=== PATIENT | female | born 1970 | race African-American/Black ===

== ENCOUNTER 2018-11-30 09:45 | Day surgery (SDC) | payer SELFPAY ==
[2018-11-29 11:59] VITALS: BMI 38.5
[2018-11-30] MEDS ORDERED: Fentanyl 100 MCG/2 ML VIAL ONE ×2 (10:21→11:40)
[2018-11-30] MEDS ORDERED: Lidocaine 2% PF 5 ML VIAL ONE (10:27)
[2018-11-30] MEDS ORDERED: Bupivacaine/Epinephrine 0.25% 30 ML VIAL ONE (10:27)
[2018-11-30] MEDS ORDERED: Ondansetron PF 4 MG/2 ML Vial ONE (10:32)
[2018-11-30] MEDS ORDERED: Dexamethasone 20 MG/5 ML VIAL ONE (10:32)
[2018-11-30] MEDS ORDERED: Lidocaine 1% PF 5 ML VIAL ONE (10:32)
[2018-11-30] MEDS ORDERED: PHENYLEPHRINE-NS 100 MCG/ML 10 ML SYRINGE ONE (10:32)
[2018-11-30] MEDS ORDERED: PROPOFOL 200 MG/20 ML VIAL ONE (10:32)
[2018-11-30] MEDS ORDERED: Ketorolac Tromethamine 30 MG/ML VIAL ONE (10:44)
[2018-11-30] MEDS ORDERED: Midazolam HCl 2 mg/2 ml Vial ONE (11:34)
[2018-11-30] MEDS ORDERED: PROPOFOL 20 ML ONE (12:09)
--- NOTE | 2018-11-30 13:07 | PDOC.OP ---
Operative Note - Operative Note Operative Note: PROCEDURE: Placement of right internal jugular Mediport with ultrasound and fluoroscopic guidance. SURGEON: Mitchell Luna M.D. DATE OF PROCEDURE: 11/30/2018 PREOPERATIVE DIAGNOSIS: Inflammatory breast cancer POSTOPERATIVE DIAGNOSIS: Inflammatory breast cancer HISTORY: Patient with recently diagnosed inflammatory breast cancer who requires Mediport placement for chemotherapy access. Staging is still underway. PROCEDURE: After informed consent was obtained and appropriate preoperative antibiotics were administered, the patient was taken to the Operating Room, placed in the supine position and anesthesia was administered. The neck and chest were prepped and draped in a standard sterile fashion and the patient placed in Trendelenburg position. A sterile ultrasound probe was used to identify the patent compressible right IJ vein which was accessed under direct ultrasound guidance. A wire was threaded through the needle and confirmed by ultrasound to be within the patent compressible vessel with the tip in the vena cava by fluoroscopy. Local anesthesia was infused to the skin and subcutaneous tissues of the right neck and chest. An infraclavicular incision was made and a catheter tunneled from the infraclavicular to the right IJ access site. A dilator and sheath were placed over the wire and the dilator and wire removed leaving the sheath in place. The catheter tubing was tunneled through the sheath which was then split and removed leaving the catheter in place. This was confirmed by fluoroscopy to be in good position in the superior vena cava with no kinking of the course of the catheter. The catheter was cut to length at the subclavian incision and secured to the port. A subcutaneous pocket was placed and the port was secured to the pectoralis fascia within the pocket. The port easily aspirated and flushed without difficulty. The course of the tubing was confirmed to be smooth with the tip of the Mediport in the superior vena cava. The skin incision at the neck was closed with 4-0 Monocryl suture and Dermabond dressings were placed. The skin at the subclavian incision was closed with 3-0 Monocryl subcutaneous and with 4-0 Monocryl subcuticular suture and Dermabond was placed there as well. The patient was taken to Recovery in good condition. Estimated blood loss was minimal. There were no complications. There were no specimens.
--- NOTE | 2018-11-30 15:29 | RAD ---
CHEST 1 VIEW: INDICATION: Status post MediPort placement. COMPARISON: Prior chest radiograph dated 06/04/2005. FINDINGS: Heart size is normal. Lungs are clear. There is a right IJ chest wall MediPort in place. No pneumo thorax is evident. IMPRESSION: No pneumothorax. POS: [facility]
== END 2018-11-30 15:30 | disposition home or self-care (01) ==
LOC: SDC 09:45
PROVIDERS: ATTEND Surgery
PROC: 05HM33Z Insertion of Infusion Device into Right Internal Jugular Vein, Percutaneous Approach (ICD-10-PCS; principal; 2018-11-30)
DX: C50.912 Malignant neoplasm of unspecified site of left female breast (principal); J45.909 Unspecified asthma, uncomplicated; Z17.1 Estrogen receptor negative status [ER-]; Z79.899 Other long term (current) drug therapy
CPT/HCPCS: 71045; C1788; J0131; J1100; J1642; J1885; J2001; J2250; J2405; J2704; J3010

== ENCOUNTER 2018-12-04 12:11 | Outpatient (CLI) | payer MEDICAID, SELFPAY ==
--- NOTE | 2018-12-04 15:46 | CT ---
CT CHEST AND ABDOMEN AND PELVIS WITH CONTRAST: Multiple axial tomograms were obtained throughout the chest, abdomen, and pelvis with IV enhancement. INDICATION: Breast cancer. Staging. The patient recently underwent bilateral breast biopsy. The left breast biopsy showed invasive ducta l carcinoma. COMPARISON: Comparison is made to a noncontrast abdomen CT from 03/30/2008. FINDINGS: CT CHEST: The lungs are well aerated. In the left lung there is a 7-8 mm nodule in the left upper lobe. There is an 8 mm nodule in the lef t upper lobe lingula segment. There is a 1.5 cm nodule along the fissure probably located in the sup erior segment of the left lower lobe. In the right lung, there is a tiny 3-4 mm nodule adjacent to the fissure in the right middle lobe. T here are 2 small 5 mm nodules in the anterior right lower lobe, 1 adjacent to the mediastinum and the other adjacent to the pleural surface of the hemidiaphragm, both seen on image 37. Another small 3 x 5 mm nodule right lower lobe image 39 of axial plane. A tiny 2-3 mm nodule right l ower lobe also image 39. There is mild mediastinal adenopathy with enlarged paratracheal lymph nodes. A left hilar lymph node measures 1.5 cm. Large left breast mass measuring 5-6 cm. There is haziness in the left breast adipose tissue and the re is left breast skin thickening, worrisome for inflammatory carcinoma. Prominent left axillary adenopathy. A large conglomerate of lymph nodes in the left axilla measures up to 4.2 cm AP dimension. Numerous other enlarged left axillary lymph nodes. There are retropector al lymph nodes on the left. There is a central necrotic retropectoral lymph node on the left measuri ng 1.8 cm. There is an enlarged right axillary lymph node measuring 2.0 cm. There is heterogeneity in the right breast tissue. There is asymmetric skin thickening in the medial right breast which should be furth er investigated with punch biopsy. Osseous structures unremarkable. IMPRESSION: 1. Pulmonary nodules seen in both lungs as described above. 2. Mediastinal and left hilar adenopathy as described. 3. Enlarged edematous left breast with diffuse left breast skin thickening and a mass-like density i n the left breast as described above. There is prominent left axillary adenopathy and left retropect oral adenopathy as descried. Neoplasm should be excluded. 4. Asymmetric skin thickening in the medial right breast with heterogeneity of the right breast pare nchyma. At least 1 enlarged right axillary lymph node measures 2.0 cm. Consider skin biopsy medial right breast and right axillary node biopsy. CT ABDOMEN AND PELVIS: Multiple axial tomograms were obtained through the abdomen and pelvis with IV enhancement and with or al contrast. INDICATION: Breast cancer staging. The liver, spleen, and pancreas are unremarkable. Adrenal glands normal. Kidneys unremarkable. The small bowel loops appear normal. Colon unremarkable. Aorta normal caliber. Images through the pelvis reveal an enlarged heterogeneous uterus. Findings suggest a fibroid uterus . A large prominent area in the fundus of the uterus may represent a large fibroid measuring 5-6 cm. There are 2 adjacent cysts in the left adnexa which appear to be ovarian. These are best seen on cor onal images and each of these cysts measure approximately 2.0 cm. There is also a complex possibly septated cystic mass from the right adnexa, presumably ovarian with the cystic mass measuring up to 4.8 cm craniocaudal in the coronal plane. This may also represent 2 adjacent cystic structures from the right ovary. The appendix is identified and appears normal. The osseous structures are unremarkable. Sclerosis along both SI joints is mildly prominent suggesti ng sacroiliitis. IMPRESSION: 1. Bilateral ovarian cystic masses as described above. Followup recommended to assess resolution. 2. Enlarged heterogeneous uterus suggesting a large fibroid uterus. POS: [facility]
[2018-12-04] MEDS ORDERED: Iopamidol 370 76% 100 ML VIAL ONE (16:30)
== END 2018-12-04 12:12 | disposition home or self-care (01) ==
LOC: CT 12:11
PROVIDERS: ATTEND Internal Medicine Hematology & Oncology
DX: C50.112 Malignant neoplasm of central portion of left female breast (principal); R91.8 Other nonspecific abnormal finding of lung field; R59.0 Localized enlarged lymph nodes; N83.201 Unspecified ovarian cyst, right side; N83.202 Unspecified ovarian cyst, left side; N64.59 Other signs and symptoms in breast; I07.1 Rheumatic tricuspid insufficiency; N85.2 Hypertrophy of uterus; Z79.899 Other long term (current) drug therapy
CPT/HCPCS: 71260; 74177; 93306; Q9967

== ENCOUNTER 2018-12-15 07:24 | Outpatient (CLI) | payer MEDICAID ==
--- NOTE | 2018-12-15 10:46 | PET ---
PET CT: HISTORY: 48-year-old female with left breast cancer. Patient appeared to have metastatic disease to the medias tinum and axillary regions on CT. COMPARISON: CT chest/abdomen/pelvis dated 12/04/18. TECHNIQUE: A PET CT was performed from the skull base through the mid thigh after administration of 13.9 mCi F18 -FDG. FINDINGS: There is a large mass occupying the majority of the left breast. This is hypermetabolic with a max RICHARDSON V value of 9.4. This extends throughout the majority of the breast and to the skin surface where ther e is hypermetabolic activity at the skin surface. There are enlarged left axillary lymph nodes which are hypermetabolic with a max SUV value of 10.1. There is a single and large right axillary lymph node with a max SUV value of 8.9. There is a hypermetabolic left hilar lymph node with a max SUV value of 5.6. There are small superior mediastinal hypermetabolic lymph nodes with max SUV value of 5.2. There are small scattered nodules in the lungs which do not demonstrate hypermetabolic activity. The majority of these nodules are too small and likely below PET resolution. Metastasis cannot be entirel y excluded. No suspicious or hypermetabolic activity is seen in the neck. No suspicious or hypermetabolic activity is seen within the abdomen. In particular, no hypermetabolic activity is seen in the pelvis in the region of the previously described ovarian abnormalities which likely represent normal ovaries in this patient. There are scattered areas of hypermetabolic activity in the skeleton. None of these regions have CT c orrelates. In the sternum, there is a focal hypermetabolic activity with a max SUV value of 4.8. In t he T6 vertebral body, there is a focal hypermetabolic region with a max SUV value of 4.3. In the L5 v ertebral body, there is a focal hypermetabolic area with a max SUV value of 9.4. In the right iliac b one, there is a focal hypermetabolic region with a max SUV value of 3.9. In the left proximal humerus , there is a focal area of hypermetabolic activity with a max SUV value of 6.8. IMPRESSION: 1. Large left breast mass is consistent with patient's diagnosis of left breast cancer. There appear s to be metastatic disease to the bilateral axillary regions, as well as to the mediastinum and left hilar region in the chest. 2. There is diffuse osseous metastatic disease without CT correlate. POS: [facility]
== END 2018-12-15 07:25 | disposition home or self-care (01) ==
LOC: PET 07:24
PROVIDERS: ATTEND Internal Medicine Hematology & Oncology
DX: C50.912 Malignant neoplasm of unspecified site of left female breast (principal); C79.51 Secondary malignant neoplasm of bone
CPT/HCPCS: 78815; A9552

== ENCOUNTER 2019-01-02 08:49 | Day surgery (SDC) | payer MEDICAID ==
[~2019-01-02 08:49] MED LIST: ATEZOLIZUMAB 840 MG in Sodium Chloride 0.9% 250 ML 250 ML IVPB SCH; Ondansetron 2MG/ML MDV 10 MG in Sodium Chloride 0.9% 50 ML IVP SCH; PACLitaxel Protein-Bound 200 MG in Admixture Fee 1 EACH IVPB SCH
[2019-01-02] MEDS ORDERED: Sodium Chloride 0.9% 20 ML ONE (10:02)
[2019-01-02 11:36] VITALS: BP 133/83; TEMP 98
== END 2019-01-02 13:08 | disposition home or self-care (01) ==
LOC: ONC/OP 08:49
PROVIDERS: ATTEND Internal Medicine Hematology & Oncology
DX: Z51.12 Encounter for antineoplastic immunotherapy (principal); C50.112 Malignant neoplasm of central portion of left female breast; Z17.1 Estrogen receptor negative status [ER-]
CPT/HCPCS: 96375; 96413; 96417; J1642; J2405; J7050; J9022; J9264

== ENCOUNTER 2019-01-09 09:14 | Day surgery (SDC) | payer MEDICAID ==
[~2019-01-09 09:14] MED LIST changes: -ATEZOLIZUMAB 840 MG in Sodium Chloride 0.9% 250 ML 250 ML IVPB SCH; -Ondansetron 2MG/ML MDV 10 MG in Sodium Chloride 0.9% 50 ML IVP SCH; +Ondansetron 2MG/ML MDV 10 MG in Sodium Chloride 0.9% 50 ML IVPB SCH
[2019-01-09] MEDS ORDERED: Sodium Chloride 0.9% 20 ML ONE (09:31)
[2019-01-09 09:37] VITALS: BP 122/67; TEMP 98.2
== END 2019-01-09 11:00 | disposition home or self-care (01) ==
LOC: ONC/OP 09:14
PROVIDERS: ATTEND Internal Medicine Hematology & Oncology
DX: Z51.11 Encounter for antineoplastic chemotherapy (principal); C50.112 Malignant neoplasm of central portion of left female breast; Z17.1 Estrogen receptor negative status [ER-]
CPT/HCPCS: 36415; 80053; 82248; 83615; 84100; 84443; 84550; 96375; 96413; J1642; J2405; J7050; J9264

== ENCOUNTER 2019-01-16 09:02 | Day surgery (SDC) | payer MEDICAID ==
[~2019-01-16 09:02] MED LIST changes: +ATEZOLIZUMAB 840 MG in Sodium Chloride 0.9% 250 ML 250 ML IVPB SCH
[2019-01-16] MEDS ORDERED: Sodium Chloride 0.9% 20 ML ONE (09:23)
[2019-01-16 12:23] VITALS: BP 122/58; TEMP 97.8
== END 2019-01-16 12:33 | disposition home or self-care (01) ==
LOC: ONC/OP 09:02
PROVIDERS: ATTEND Internal Medicine Hematology & Oncology
DX: Z51.11 Encounter for antineoplastic chemotherapy (principal); C50.112 Malignant neoplasm of central portion of left female breast
CPT/HCPCS: 96375; 96413; 96417; J1642; J2405; J7050; J9022; J9264

== ENCOUNTER 2019-01-30 10:07 | Day surgery (SDC) | payer OTHER ==
[2019-01-30] MEDS ORDERED: Sodium Chloride 0.9% 20 ML ONE (10:11)
== END 2019-01-30 13:02 | disposition home or self-care (01) ==
LOC: ONC/OP 10:07
PROVIDERS: ATTEND Internal Medicine Hematology & Oncology
DX: Z51.12 Encounter for antineoplastic immunotherapy (principal); C50.112 Malignant neoplasm of central portion of left female breast; Z17.1 Estrogen receptor negative status [ER-]
CPT/HCPCS: 96375; 96413; 96417; J1642; J2405; J7050; J9022; J9264

== ENCOUNTER 2019-02-06 08:49 | Day surgery (SDC) | payer OTHER ==
[~2019-02-06 08:49] MED LIST changes: -ATEZOLIZUMAB 840 MG in Sodium Chloride 0.9% 250 ML 250 ML IVPB SCH
[2019-02-06] MEDS ORDERED: Sodium Chloride 0.9% 20 ML ONE (09:13)
== END 2019-02-06 12:30 | disposition home or self-care (01) ==
LOC: ONC/OP 08:49
PROVIDERS: ATTEND Internal Medicine Hematology & Oncology
DX: Z51.12 Encounter for antineoplastic immunotherapy (principal); C50.112 Malignant neoplasm of central portion of left female breast
CPT/HCPCS: 96375; 96413; J1642; J2405; J7050; J9264

== ENCOUNTER 2019-02-27 08:46 | Day surgery (SDC) | payer OTHER ==
[~2019-02-27 08:46] MED LIST changes: +ATEZOLIZUMAB 840 MG in Sodium Chloride 0.9% 250 ML 250 ML IVPB SCH
[2019-02-27] MEDS ORDERED: Sodium Chloride 0.9% 20 ML ONE (08:56)
[2019-02-27 09:34] VITALS: BP 138/73; TEMP 97.7
== END 2019-02-27 11:56 | disposition home or self-care (01) ==
LOC: ONC/OP 08:46
PROVIDERS: ATTEND Internal Medicine Hematology & Oncology
DX: Z51.11 Encounter for antineoplastic chemotherapy (principal); C50.112 Malignant neoplasm of central portion of left female breast
CPT/HCPCS: 96375; 96413; 96417; J1642; J2405; J7050; J9022; J9264

== ENCOUNTER 2019-03-06 09:32 | Day surgery (SDC) | payer OTHER ==
[~2019-03-06 09:32] MED LIST changes: -ATEZOLIZUMAB 840 MG in Sodium Chloride 0.9% 250 ML 250 ML IVPB SCH
[2019-03-06 10:30] VITALS: BP 121/74; TEMP 97.8
== END 2019-03-06 12:13 | disposition home or self-care (01) ==
LOC: ONC/OP 09:32
PROVIDERS: ATTEND Internal Medicine Hematology & Oncology
DX: Z51.12 Encounter for antineoplastic immunotherapy (principal); C50.112 Malignant neoplasm of central portion of left female breast; Z17.1 Estrogen receptor negative status [ER-]
CPT/HCPCS: 36415; 80053; 82248; 83615; 84100; 84550; 96375; 96413; J2405; J7050; J9264

== ENCOUNTER 2019-03-13 09:04 | Day surgery (SDC) | payer OTHER ==
[~2019-03-13 09:04] MED LIST changes: +ATEZOLIZUMAB 840 MG in Sodium Chloride 0.9% 250 ML 250 ML IVPB SCH
[2019-03-13 09:28] VITALS: BP 117/83; TEMP 98.5
[2019-03-13] MEDS ORDERED: Sodium Chloride 0.9% 20 ML ONE (11:16)
== END 2019-03-13 11:21 | disposition home or self-care (01) ==
LOC: ONC/OP 09:04
PROVIDERS: ATTEND Internal Medicine Hematology & Oncology
DX: Z51.12 Encounter for antineoplastic immunotherapy (principal); C50.112 Malignant neoplasm of central portion of left female breast
CPT/HCPCS: 96375; 96413; 96417; J1642; J2405; J7050; J9022; J9264

== ENCOUNTER 2019-03-27 08:47 | Day surgery (SDC) | payer OTHER ==
[2019-03-27] MEDS ORDERED: Sodium Chloride 0.9% 20 ML ONE (08:49)
[2019-03-27 09:16] VITALS: BP 153/82; TEMP 97.8
== END 2019-03-27 13:32 | disposition home or self-care (01) ==
LOC: ONC/OP 08:47
PROVIDERS: ATTEND Internal Medicine Hematology & Oncology
DX: Z51.12 Encounter for antineoplastic immunotherapy (principal); C50.112 Malignant neoplasm of central portion of left female breast
CPT/HCPCS: 96375; 96413; 96417; J1642; J2405; J7050; J9022; J9264

== ENCOUNTER 2019-04-03 09:20 | Day surgery (SDC) | payer OTHER ==
[~2019-04-03 09:20] MED LIST changes: -ATEZOLIZUMAB 840 MG in Sodium Chloride 0.9% 250 ML 250 ML IVPB SCH
[2019-04-03] MEDS ORDERED: Sodium Chloride 0.9% 20 ML ONE (09:50)
[2019-04-03 10:57] VITALS: BP 109/77; TEMP 98.5
== END 2019-04-03 12:18 | disposition home or self-care (01) ==
LOC: ONC/OP 09:20
PROVIDERS: ATTEND Internal Medicine Hematology & Oncology
DX: Z51.12 Encounter for antineoplastic immunotherapy (principal); C50.112 Malignant neoplasm of central portion of left female breast
CPT/HCPCS: 96375; 96413; J1642; J2405; J9264

== ENCOUNTER 2019-04-10 09:25 | Day surgery (SDC) | payer OTHER ==
[~2019-04-10 09:25] MED LIST changes: +ATEZOLIZUMAB 840 MG in Sodium Chloride 0.9% 250 ML 250 ML IV SCH; +ATEZOLIZUMAB 840 MG in Sodium Chloride 0.9% 250 ML 250 ML IVPB SCH
[2019-04-10] MEDS ORDERED: Sodium Chloride 0.9% 20 ML ONE (09:31)
[2019-04-10 11:10] VITALS: BP 130/74; TEMP 98.1
== END 2019-04-10 14:54 | disposition home or self-care (01) ==
LOC: ONC/OP 09:25
PROVIDERS: ATTEND Internal Medicine Hematology & Oncology
DX: Z51.12 Encounter for antineoplastic immunotherapy (principal); C50.112 Malignant neoplasm of central portion of left female breast
CPT/HCPCS: 36415; 80053; 82248; 83615; 84100; 84550; 96375; 96413; 96417; G9022; J1642; J2405; J7050; J9264

== ENCOUNTER 2019-04-24 09:18 | Day surgery (SDC) | payer OTHER ==
[2019-04-24] MEDS ORDERED: Sodium Chloride 0.9% 20 ML ONE (09:22)
[2019-04-24 09:33] VITALS: BP 121/77; TEMP 97.6
[2019-04-24] MEDS ORDERED: Ondansetron HCl/PF 10 MG in Sodium Chloride 0.9% 50 ML IVPB SCH (09:45)
[2019-04-24] MEDS ORDERED: PACLITAXEL PROTEIN BOUND IVPB SCH (09:45)
[2019-04-24] MEDS ORDERED: ADMIXTURE FEE CHEMO IVPB SCH (09:45)
[2019-04-24] MEDS ORDERED: ATEZOLIZUMAB 840 MG in Sodium Chloride 0.9% 250 ML 250 ML IV SCH (09:45)
== END 2019-04-24 13:09 | disposition home or self-care (01) ==
LOC: ONC/OP 09:18
PROVIDERS: ATTEND Internal Medicine Hematology & Oncology
DX: Z51.12 Encounter for antineoplastic immunotherapy (principal); C50.112 Malignant neoplasm of central portion of left female breast
CPT/HCPCS: 96375; 96413; 96417; G9022; J1642; J2405; J7050; J9264

== ENCOUNTER 2019-04-27 08:26 | Outpatient (CLI) | payer OTHER ==
--- NOTE | 2019-04-27 10:38 | PET ---
PET W CT Skull to Mid Thigh History: Malignant neoplasm of central portion of left lung. Secondary malignant neoplasm of bone. Ev aluate for treatment response. Comparison: PET/CT December 15, 2018 Findings: PET CT from skull to mid thigh was performed after the intravenous administration 10.6 mCi F-18 FDG. No abnormal intracranial uptake. The left breast uptake has markedly decreased with only a small mass having significant FDG avidity with SUV max of 5.1. Previous SUV max of the left breast was measured at 9.4. Is seen in the left intramammary lymph node has SUV max 2.87, previously indistingui shable from the primary malignancy. Left axillary adenopathy has decreased in size and has background FDG uptake. No internal mammary cris nopathy. Previously abnormal right axillary lymph node has background FDG avidity. No mediastinal adenopathy. No abnormal uptake in the abdomen or pelvis. Previously described prevascular lymph node has background FDG avidity. Previously described left hil ar lymph node has background FDG avidity. Normal background uptake of radiotracer within the sternum and manubrium. The L5 FDG avidity is marke dly decreased with SUV max of 4.45, previously measured at 9.4. The previously described left humeral metastatic focus has background FDG avidity. The thoracic spine metastatic focus has markedly decreased FDG activity of 3.6, previously 5.2. No new suspicious area of FDG uptake. Right iliac bone metastatic focus has background FDG avidity. On the CT images for attenuation correction the lungs are clear. No pneumothorax. No pericardial effu che. Extensive left breast skin thickening. No acute inflammatory process within the abdomen or pelvis. No hydronephrosis. No pathologic fracture . 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 Impression: Marked interval improvement of disease. The left breast primary malignancy has markedly s hrunken only a single focal area of increased FDG activity with associated small intramammary lymph node. The hilar and axillary adenopathy has background uptake. Marked interval improvement of osseous metastatic disease. No new focal area of metastasis.
== END 2019-04-27 08:27 | disposition home or self-care (01) ==
LOC: PET 08:26
PROVIDERS: ATTEND Internal Medicine Hematology & Oncology
DX: C50.112 Malignant neoplasm of central portion of left female breast (principal); C78.00 Secondary malignant neoplasm of unspecified lung; C79.51 Secondary malignant neoplasm of bone; R59.0 Localized enlarged lymph nodes
CPT/HCPCS: 78815; A9552

== ENCOUNTER 2019-05-01 09:15 | Day surgery (SDC) | payer OTHER ==
[~2019-05-01 09:15] MED LIST changes: +ADMIXTURE FEE CHEMO IVPB SCH; -ATEZOLIZUMAB 840 MG in Sodium Chloride 0.9% 250 ML 250 ML IV SCH; -ATEZOLIZUMAB 840 MG in Sodium Chloride 0.9% 250 ML 250 ML IVPB SCH; -Ondansetron 2MG/ML MDV 10 MG in Sodium Chloride 0.9% 50 ML IVPB SCH; +Ondansetron HCl/PF 10 MG in Sodium Chloride 0.9% 50 ML IVPB SCH; +PACLITAXEL PROTEIN BOUND IVPB SCH; -PACLitaxel Protein-Bound 200 MG in Admixture Fee 1 EACH IVPB SCH; +Zoledronic Acid 4 MG in Sodium Chloride 0.9% 100 ML IVPB SCH
[2019-05-01 09:40] VITALS: BP 126/75; TEMP 97.8
[2019-05-01] MEDS ORDERED: Sodium Chloride 0.9% 20 ML ONE (09:42)
== END 2019-05-01 12:02 | disposition home or self-care (01) ==
LOC: ONC/OP 09:15
PROVIDERS: ATTEND Internal Medicine Hematology & Oncology
DX: Z51.11 Encounter for antineoplastic chemotherapy (principal); C50.112 Malignant neoplasm of central portion of left female breast; C79.51 Secondary malignant neoplasm of bone
CPT/HCPCS: 96367; 96375; 96413; J1642; J2405; J3489; J3490; J9264

== ENCOUNTER 2019-05-08 09:10 | Day surgery (SDC) | payer OTHER ==
[~2019-05-08 09:10] MED LIST changes: +ATEZOLIZUMAB 840 MG in Sodium Chloride 0.9% 250 ML 250 ML IV SCH; -Zoledronic Acid 4 MG in Sodium Chloride 0.9% 100 ML IVPB SCH
[2019-05-08] MEDS ORDERED: Sodium Chloride 0.9% 20 ML ONE (09:15)
[2019-05-08 09:35] VITALS: BP 102/63; TEMP 97.5
== END 2019-05-08 11:26 | disposition home or self-care (01) ==
LOC: ONC/OP 09:10
PROVIDERS: ATTEND Internal Medicine Hematology & Oncology
DX: Z51.12 Encounter for antineoplastic immunotherapy (principal); C50.112 Malignant neoplasm of central portion of left female breast; C79.51 Secondary malignant neoplasm of bone
CPT/HCPCS: 96375; 96413; 96417; G9022; J1642; J2405; J7050; J9264

== ENCOUNTER 2019-05-22 09:14 | Day surgery (SDC) | payer OTHER ==
[2019-05-22 09:27] VITALS: BP 136/77; TEMP 97.7
[2019-05-22] MEDS ORDERED: Sodium Chloride 0.9% 20 ML ONE (09:28)
== END 2019-05-22 11:51 | disposition home or self-care (01) ==
LOC: ONC/OP 09:14
PROVIDERS: ATTEND Internal Medicine Hematology & Oncology
DX: Z51.12 Encounter for antineoplastic immunotherapy (principal); C50.112 Malignant neoplasm of central portion of left female breast; C79.51 Secondary malignant neoplasm of bone
CPT/HCPCS: 96375; 96413; 96417; G9022; J1642; J2405; J7050; J9264

== ENCOUNTER 2019-05-29 09:17 | Day surgery (SDC) | payer OTHER ==
[~2019-05-29 09:17] MED LIST changes: -ATEZOLIZUMAB 840 MG in Sodium Chloride 0.9% 250 ML 250 ML IV SCH; +Ondansetron 2MG/ML MDV 10 MG in Sodium Chloride 0.9% 50 ML IVPB SCH; -Ondansetron HCl/PF 10 MG in Sodium Chloride 0.9% 50 ML IVPB SCH
[2019-05-29] MEDS ORDERED: Sodium Chloride 0.9% 20 ML ONE ×2 (09:18→09:22)
[2019-05-29 09:33] VITALS: BP 120/77; TEMP 97.8
== END 2019-05-29 11:28 | disposition home or self-care (01) ==
LOC: ONC/OP 09:17
PROVIDERS: ATTEND Internal Medicine Hematology & Oncology
DX: Z51.12 Encounter for antineoplastic immunotherapy (principal); C50.112 Malignant neoplasm of central portion of left female breast; C79.51 Secondary malignant neoplasm of bone
CPT/HCPCS: 96375; 96413; J1642; J2405; J9264

== ENCOUNTER 2019-06-05 10:23 | Day surgery (SDC) | payer OTHER ==
[~2019-06-05 10:23] MED LIST changes: +ATEZOLIZUMAB 840 MG in Sodium Chloride 0.9% 250 ML 250 ML IV SCH
[2019-06-05] MEDS ORDERED: Sodium Chloride 0.9% 20 ML ONE (10:59)
[2019-06-05 12:56] VITALS: BP 110/67; TEMP 97.8
== END 2019-06-05 13:28 | disposition home or self-care (01) ==
LOC: ONC/OP 10:23
PROVIDERS: ATTEND Internal Medicine Hematology & Oncology
DX: Z51.11 Encounter for antineoplastic chemotherapy (principal); C50.112 Malignant neoplasm of central portion of left female breast; C79.51 Secondary malignant neoplasm of bone; Z17.1 Estrogen receptor negative status [ER-]
CPT/HCPCS: 36415; 80053; 82248; 83615; 84100; 84443; 84550; 96375; 96413; 96417; G9022; J1642; J2405; J7050; J9264

== ENCOUNTER 2019-06-19 09:17 | Day surgery (SDC) | payer OTHER ==
[2019-06-19 09:26] VITALS: BP 139/97; TEMP 97.8
[2019-06-19] MEDS ORDERED: Sodium Chloride 0.9% 20 ML ONE (09:53)
== END 2019-06-19 11:45 | disposition home or self-care (01) ==
LOC: ONC/OP 09:17
PROVIDERS: ATTEND Internal Medicine Hematology & Oncology
DX: Z51.11 Encounter for antineoplastic chemotherapy (principal); C50.112 Malignant neoplasm of central portion of left female breast; C79.51 Secondary malignant neoplasm of bone; Z17.1 Estrogen receptor negative status [ER-]
CPT/HCPCS: 96375; 96413; 96417; G9022; J1642; J2405; J7050; J9264

== ENCOUNTER 2019-06-26 09:07 | Day surgery (SDC) | payer OTHER ==
[~2019-06-26 09:07] MED LIST changes: -ATEZOLIZUMAB 840 MG in Sodium Chloride 0.9% 250 ML 250 ML IV SCH
[2019-06-26] MEDS ORDERED: Sodium Chloride 0.9% 20 ML ONE (09:33)
[2019-06-26 09:35] VITALS: BP 105/65; TEMP 97.9
== END 2019-06-26 10:54 | disposition home or self-care (01) ==
LOC: ONC/OP 09:07
PROVIDERS: ATTEND Internal Medicine Hematology & Oncology
DX: Z51.11 Encounter for antineoplastic chemotherapy (principal); C50.112 Malignant neoplasm of central portion of left female breast; C79.51 Secondary malignant neoplasm of bone
CPT/HCPCS: 96375; 96413; J1642; J2405; J9264

== ENCOUNTER 2019-07-03 09:27 | Day surgery (SDC) | payer OTHER ==
[~2019-07-03 09:27] MED LIST changes: +ATEZOLIZUMAB 840 MG in Sodium Chloride 0.9% 250 ML 250 ML IV SCH
[2019-07-03 10:03] LABS: #Eosinphils 0.1 thou/uL (0.0-0.7); #Monocytes 0.3 thou/uL (0.11-0.59); #Neutrophils 1.8 thou/uL (1.40-6.50); %Basophils 0.6 % (0.0-1.0); %Eosinophils 3.8 % (0.0-10.0); %Lymphocytes 29.6 % (21.0-51.0); %Monocytes 9.4 % (0.0-10.0); %Neutrophils 56.7 % (42.0-75.0); Hemoglobin 9.9 g/dL (12.0-16.0); Mean Corpuscular HGB CONC 32.6 g/dL (32.0-36.0); Mean Corpuscular Hemoglobin 29.5 pg (27.0-31.0); Mean Corpuscular Volume 90.4 fL (78.0-98.0); Mean Platelet Volume 7.8 fL (7.4-10.4); Platelet Count 206 thou/uL (130-400); RBC Distribution Width 15.4 % (11.5-14.5); Red Blood Cell (RBC) Count 3.36 mill/uL (4.20-5.40); White Blood Cell (WBC) Count 3.2 thou/uL (4.8-10.8)
[2019-07-03 10:05] VITALS: BP 119/80; TEMP 98.4
[2019-07-03 10:24] LABS: ALT (SGPT) 21 U/L (8-55); AST (SGOT) 20 U/L (5-34); Albumin 3.6 g/dL (3.5-5.0); Alkaline Phosphatase 65 U/L (40-110); Anion Gap 10 mmol/L (10-20); BUN (Urea Nitrogen) 12 mg/dL (7.0-18.7); Bilirubin, Total 0.3 mg/dL (0.2-1.2); Calc. Creatinine Clearance 155 mL/min (70-130); Calcium 8.3 mg/dL (7.8-10.44); Carbon Dioxide 26 mmol/L (22-29); Chloride 107 mmol/L (98-107); Estimated GFR-MDRD Greater than 90; Globulin 2.7 g/dL (2.4-3.5); Glucose 83 mg/dL (70-105); Potassium 3.9 mmol/L (3.5-5.1); Protein, Total 6.3 g/dL (6.0-8.3); Sodium 139 mmol/L (136-145)
[2019-07-03] MEDS ORDERED: Sodium Chloride 0.9% 20 ML ONE (10:40)
== END 2019-07-03 11:37 | disposition home or self-care (01) ==
LOC: ONC/OP 09:27
PROVIDERS: ATTEND Internal Medicine Hematology & Oncology
DX: Z51.11 Encounter for antineoplastic chemotherapy (principal); C50.112 Malignant neoplasm of central portion of left female breast; C79.51 Secondary malignant neoplasm of bone
CPT/HCPCS: 80053; 85025; 96375; 96413; 96417; G9022; J1642; J2405; J7050; J9264

== ENCOUNTER 2019-07-17 09:31 | Day surgery (SDC) | payer OTHER ==
[~2019-07-17 09:31] MED LIST changes: -ADMIXTURE FEE CHEMO IVPB SCH; -ATEZOLIZUMAB 840 MG in Sodium Chloride 0.9% 250 ML 250 ML IV SCH; +ATEZOLIZUMAB 840 MG in Sodium Chloride 0.9% 250 ML 250 ML IVPB SCH; -PACLITAXEL PROTEIN BOUND IVPB SCH; +PACLitaxel Protein-Bound 200 MG in IV Admixture Fee-Chemo 1 UNITS IVPB SCH
[2019-07-17 09:53] VITALS: BP 141/67; TEMP 97.8
[2019-07-17] MEDS ORDERED: Sodium Chloride 0.9% 20 ML ONE (10:45)
== END 2019-07-17 14:25 | disposition home or self-care (01) ==
LOC: ONC/OP 09:31
PROVIDERS: ATTEND Internal Medicine Hematology & Oncology
DX: Z51.12 Encounter for antineoplastic immunotherapy (principal); C50.112 Malignant neoplasm of central portion of left female breast; C79.51 Secondary malignant neoplasm of bone
CPT/HCPCS: 96375; 96413; 96417; J1642; J2405; J7050; J9022; J9264

== ENCOUNTER 2019-07-24 11:03 | Day surgery (SDC) | payer OTHER ==
[~2019-07-24 11:03] MED LIST changes: -ATEZOLIZUMAB 840 MG in Sodium Chloride 0.9% 250 ML 250 ML IVPB SCH; +Zoledronic Acid 4 MG in Sodium Chloride 0.9% 100 ML IVPB SCH
[2019-07-24] MEDS ORDERED: Sodium Chloride 0.9% 20 ML ONE (11:07)
[2019-07-24 13:32] VITALS: BP 123/80; TEMP 98.7
== END 2019-07-24 13:34 | disposition home or self-care (01) ==
LOC: ONC/OP 11:03
PROVIDERS: ATTEND Internal Medicine Hematology & Oncology
DX: Z51.12 Encounter for antineoplastic immunotherapy (principal); C50.112 Malignant neoplasm of central portion of left female breast; C79.51 Secondary malignant neoplasm of bone
CPT/HCPCS: 36415; 80053; 82248; 83615; 84100; 84550; 96367; 96375; 96413; J1642; J2405; J3489; J3490; J9264

== ENCOUNTER 2019-07-31 09:33 | Day surgery (SDC) | payer OTHER ==
[~2019-07-31 09:33] MED LIST changes: +ADMIXTURE FEE CHEMO IVPB SCH; +ATEZOLIZUMAB 840 MG in Sodium Chloride 0.9% 250 ML 250 ML IVPB SCH; +PACLITAXEL PROTEIN BOUND IVPB SCH; -PACLitaxel Protein-Bound 200 MG in IV Admixture Fee-Chemo 1 UNITS IVPB SCH; -Zoledronic Acid 4 MG in Sodium Chloride 0.9% 100 ML IVPB SCH
[2019-07-31] MEDS ORDERED: Sodium Chloride 0.9% 20 ML ONE (09:42)
[2019-07-31 10:50] VITALS: BP 122/80; TEMP 98
== END 2019-07-31 14:12 | disposition home or self-care (01) ==
LOC: ONC/OP 09:33
PROVIDERS: ATTEND Internal Medicine Hematology & Oncology
DX: Z51.11 Encounter for antineoplastic chemotherapy (principal); C50.112 Malignant neoplasm of central portion of left female breast
CPT/HCPCS: 36415; 80053; 82248; 83615; 84100; 84550; 96375; 96413; 96417; J1642; J2405; J7050; J9022; J9264

== ENCOUNTER 2019-08-09 09:00 | Outpatient (CLI) | payer OTHER ==
--- NOTE | 2019-08-09 13:25 | PET ---
PET CT: HISTORY: 48-year-old female with breast cancer and bone mets. Exam requested to evaluate for response to treat ment. Patient is undergoing current chemotherapy. TECHNIQUE: PET scanning with CT attenuation correction was performed from the base of the brain through the prox imal thighs following the intravenous administration of 12 mCi F18-FDG in the right antecubital fossa . COMPARISON: PET CT dated 04/27/19. FINDINGS: Multiple new foci of abnormally increased FDG localization is seen, consistent with interval worsenin g of metastatic disease since the previous study. There are hypermetabolic axillary lymph nodes with a SUV of 11.1 on the left and 16.6 on the right. H ypermetabolic left hilar lymph node has a SUV of 7 and omental lymph nodes with a SUV of 8.6. There are hypermetabolic masses in the left breast. The SUVs in the superior masses are 14.7 medially and 11 laterally, and in the inferior aspect of the breast 11.5 medially and 10 laterally. Multiple hypermetabolic skeletal lesions are seen, including the thoracolumbar spine (maximum SUV 8.3 at L2 and 8.8 at T2), manubrium of the sternum (SUV 4.3), right ischial tuberosity (SUV 7.1), left i liac bone (SUV 8.4), and right sacrum (SUV 5.4). No hypermetabolic pulmonary nodules, liver, or adrenal lesions are seen. There is a hypermetabolic soft tissue lesion in the subcutaneous aspect of the left medial gluteal fo ld with a SUV of 12.9. There is a focally increased uptake in the left adnexa with a SUV of 8.1 There is physiologic activity in the GI and tracts, heart, and the visualized portions of the brai n. The CT scan used for attenuation correction demonstrates no evidence of pleural effusions or ascites. IMPRESSION: 1. Interval worsening of metastatic disease since 04/27/19. 2. Pelvic ultrasound is recommended to evaluate the findings of the left adnexa. POS: [facility]
== END 2019-08-09 09:01 | disposition home or self-care (01) ==
LOC: PET 09:00
PROVIDERS: ATTEND Internal Medicine Hematology & Oncology
DX: C50.912 Malignant neoplasm of unspecified site of left female breast (principal); C79.51 Secondary malignant neoplasm of bone; R91.1 Solitary pulmonary nodule
CPT/HCPCS: 78815; A9552

== ENCOUNTER 2019-08-15 07:35 | Outpatient (CLI) | payer OTHER ==
--- NOTE | 2019-08-15 08:59 | MRI ---
MRI Brain WITH AND WITHOUT CONTRAST: DATE: 08/15/2019. TIME: 12:00 AM. CLINICAL HISTORY: History of breast cancer, with headaches. COMPARISON: None. FINDINGS: Extra axial spaces: Normal in size and morphology for the patient's age. Acute infarction: None. Ventricular system: There is an enhancing lesion that approximates the posterior aspect of the third ventricle with associated mild effacement, although no evidence of obstructive hydrocephalus. Basal cisterns: Normal. Cerebral parenchyma: There are innumerable enhancing metastatic lesions both supratentorial and infra tentorial in location, more densely distributed within the cerebellum. There is associated vasogenic edema. Dominant lesion measures approximately 2 cm within the left cerebellar hemisphere, m edially. There are associated areas of intrinsic T1 hyperintensity as well as gradient susceptibility compatible with component of hemorrhagic metastases. Midline shift: None. Cerebellum: Numerous metastatic lesions and vasogenic edema, as above. Brainstem: There is an enhancing metastatic lesion at the posterior right con. Paranasal sinuses:Clear . IMPRESSION: Numerous enhancing intraaxial metastatic lesions, many of which are hemorrhagic metastatic lesions. Telephone call to patient's physician, Ranjan Graham, placed at the time of dictation. (0855 hours, 1 10/15/2018) CODE CR Transcribed Date/Time: 08/15/2019 9:54 AM
[2019-08-15] MEDS ORDERED: Magnevist 469MG/ML 20 ML VIAL ONE (11:48)
== END 2019-08-15 07:36 | disposition home or self-care (01) ==
LOC: MRI 07:35
PROVIDERS: ATTEND Internal Medicine Hematology & Oncology
DX: R51 Headache (principal); C50.112 Malignant neoplasm of central portion of left female breast; C79.51 Secondary malignant neoplasm of bone; C79.31 Secondary malignant neoplasm of brain
CPT/HCPCS: 70553; A9579

== ENCOUNTER 2019-09-20 13:45 | Outpatient (CLI) | payer OTHER ==
--- NOTE | 2019-09-20 15:43 | MRI ---
Lumbar spine MRI with and without contrast: 09/20/2019 HISTORY: Breast cancer with lower extremity weakness and history of osseous metastatic disease TECHNIQUE: Multiplanar multisequence MR imaging of the lumbar spine obtained with and without contras t FINDINGS: There is evidence of widespread osseous metastatic disease. This is noted on the precontras t T1 weighted imaging secondary to areas of loss of normal marrow signal intensity with abnormal decreased T1 signal within the S2 vertebral body, throughout the L5 vertebral body, involving the jay ority of the central and left aspect of the L4 vertebral body, throughout the L2 vertebral body, and involving multiple foci within the L1 vertebral body. There is evidence of osseous metastatic dis ease also noted within the T12 vertebral body. In addition, there is evidence of multifocal osseous metastatic disease within the bilateral iliac bones, especially the left iliac wing where there is a posterior and and anterior osseous metastatic lesion present. No evidence for acute compression fracture. No lumbar spine anterolisthesis or retrolisthesis. T12-L1: Intervertebral disc height and signal intensity within normal limits with no significant cent ral canal or neural foraminal stenosis. L1-2: Mild bilateral facet hypertrophy. Intervertebral disc height and signal intensity within normal limits with no significant central canal or neural foraminal stenosis. L2-3: Mild bilateral facet hypertrophy. Intervertebral disc height and signal intensity appears withi n normal limits with no significant central canal or neural foraminal stenosis. L3-4: Mild bilateral facet hypertrophy. No significant central canal or neural foraminal stenosis. L4-5: Mild bilateral facet hypertrophy. There is disc desiccation and mild disc bulge. There is mild central canal stenosis. Mild bilateral neural foraminal stenosis. L5-S1: No significant central canal or neural foraminal stenosis. There is an incompletely imaged right lateral osseous metastatic lesion at the junction of the S1 and S2 vertebral bodies. The uterus is lobulated and contains numerous T1 and T2 hypointense lesions, suggesting uterine fibro id disease. On the sagittal T2-weighted imaging there is a mass along the posterior aspect of the proximal nerve roots of the cauda equina measuring approximately 6 mm in craniocaudal dimension. There is enhancement of this lesion concerning for metastatic disease. There is a suggestion of multifocal thi ckening and nodular enhancement of the nerve roots of the cauda equina suggesting widespread intrathecal metastatic disease. The imaged retroperitoneal structures demonstrate no acute findings. IMPRESSION: Widespread osseous metastatic disease. In addition, there is enhancing nodular thickening of the nerve roots of the cauda equina most consistent with extensive intrathecal metastatic disease. Transcribed Date/Time: 09/20/2019 3:52 PM
--- NOTE | 2019-09-20 16:02 | MRI ---
MRI THORACIC SPINEW WITH AND WITHOUT CONTRAST: 09/20/19 INDICATIONS: Malignant neoplasm of known history of breast cancer with metastases. Recent PET scan of 08/09/19 jh cribed activity in the thoracolumbar spine with high activity seen at T2. FINDINGS: Thoracic vertebrae maintain height and alignment. There is abnormal low T1 signal seen involving the T2 vertebra with high T2 and STIR signal which inv olves the entire vertebral body including pedicles and transverse processes. There is abnormal enhanc ement throughout this vertebral body including the pedicles and transverse processes. Abnormal signal in the T6 vertebra involving the entire vertebral body with abnormal enhancement. Inv olvement of the pedicles and transverse processes at this level also noted. Abnormal signal in the T12 vertebra which exhibits abnormal enhancement throughout this vertebral bod y primarily to the right of midline. There is abnormal signal enhancement in the right pedicle. No evidence of disc protrusion or herniation. No central canal stenosis. There is abnormal signal seen in the thoracic cord. Diffuse signal is seen superiorly at the T1, T2 a nd T3 levels which is poorly evaluated on the postcontrast images due to motion artifact. There is a focus of enhancement in the cord seen at the T4 level probably representing signal in the left aspect of the cord. Enhancement along the margin of the cord indicates diffuse intrathecal and cord metast asis. The ribs show numerous signal abnormalities in the posterior ribs most prominent at ribs 4, 5 and 6 o n the left posteriorly. Numerous other focal areas of high signal in the posterior left ribs noted. IMPRESSION: 1. Evidence of metastatic involvement involving the T2, T6, and T12 vertebrae of the thoracic s pine. 2. Intrathecal and spinal metastatic lesions are seen as described above. 3. Evidence of posterior rib lesions on the left. POS: [facility]
== END 2019-09-20 13:46 | disposition home or self-care (01) ==
LOC: MRI 13:45
PROVIDERS: ATTEND Internal Medicine Hematology & Oncology
DX: C50.112 Malignant neoplasm of central portion of left female breast (principal); C79.51 Secondary malignant neoplasm of bone; C79.31 Secondary malignant neoplasm of brain; R53.1 Weakness; M89.9 Disorder of bone, unspecified
CPT/HCPCS: 72157; 72158

== ENCOUNTER 2019-10-01 08:18 | Outpatient (CLI) | payer OTHER ==
--- NOTE | 2019-10-01 10:38 | MRI ---
MRI CERVICAL SPINE WITH AND WITHOUT CONTRAST: HISTORY: Secondary malignant neoplasm of bone. Left breast cancer. COMPARISON: None FINDINGS: Throughout the cervical spine, appropriate T1 marrow signal intensity. No significant loss of vertebr al body height. No fracture. No significant STIR hyperintensity to suggest vertebral body edema or ligamentous injury. Postcontrast images do not demonstrate any abnormal enhancement. Redemonstration of metastases associated with the T2 vertebral body. No associated pathologic fractur e Multiple areas of enhancement are noted in the cerebellum, compatible with metastases. There is also evidence of intramedullary enhancement involving the cervicomedullary junction as well as the cervical cord at the C4-C5 disc space. Is also stippled enhancement along the surface of the cord sug gesting probable CSF spread of tumor with drop metastases along the surface of the cord. No cord expansion or cord malacia. C2-C3: Central disc bulge abuts the thecal sac. No significant central canal stenosis or significant neural foraminal narrowing. C3-C4: Central disc protrusion effaces subarachnoid space and deformity the cervical cord. No cord ab normality. Mild central canal stenosis. Moderate right and mild left foraminal narrowing due to uncovertebral hypertrophy. C4-C5: Central disc protrusion causes mass effect and deformity the cervical cord. Mild to moderate c entral canal stenosis without cord T2 hyperintensity. Mild to moderate bilateral foraminal narrowing due to uncovertebral hypertrophy. C5-C6: Broad-based disc-osteophyte complex effaces the subarachnoid space. Minimal contact upon the v entral cord. Mild central canal stenosis. Mild bilateral foraminal narrowing due to uncovertebral hypertrophy. C6-C7: Broad-based disc-osteophyte complex with a central disc protrusion. Subarachnoid space is effa rachel. Mild central canal stenosis. Mild right foraminal narrowing. Left neural foramen is patent. C7-T1: No significant central canal stenosis or significant neural foraminal narrowing. IMPRESSION: 1. Degenerative changes of the cervical spine as above. 2. Osseous metastases involving the T2 vertebral body without associated pathologic fracture. 3. There is evidence of multiple metastases in the cerebellum. There is also evidence of intramedulla ry metastases involving the cervical cord at the C4-C5 level. There is stable enhancement of the surface of the cervical cord suggesting metastases. Given that these metastases appear to be along th e surface of the cord, the possibility of metastases from cerebrospinal fluid spread of tumor cannot be excluded. Transcribed Date/Time: 10/01/2019 11:02 AM
[2019-10-01] MEDS ORDERED: Magnevist 469MG/ML 20 ML VIAL ONE (16:31)
== END 2019-10-01 08:19 | disposition home or self-care (01) ==
LOC: MRI 08:18
PROVIDERS: ATTEND Internal Medicine Hematology & Oncology
DX: C50.112 Malignant neoplasm of central portion of left female breast (principal); C71.9 Malignant neoplasm of brain, unspecified; C79.51 Secondary malignant neoplasm of bone; R53.1 Weakness; M47.812 Spondylosis without myelopathy or radiculopathy, cervical region
CPT/HCPCS: 72156

== ENCOUNTER 2019-10-18 09:52 | Day surgery (SDC) | payer OTHER ==
[2019-10-17 12:53] VITALS: BMI 38.5
[~2019-10-18 09:52] MED LIST changes: -ADMIXTURE FEE CHEMO IVPB SCH; -ATEZOLIZUMAB 840 MG in Sodium Chloride 0.9% 250 ML 250 ML IVPB SCH; +Methotrexate Sodium/PF 12.5 MG in Sodium Chloride 0.9% 10 ML IT SCH; -Ondansetron 2MG/ML MDV 10 MG in Sodium Chloride 0.9% 50 ML IVPB SCH; -PACLITAXEL PROTEIN BOUND IVPB SCH
[2019-10-18 11:50] VITALS: BP 108/73; TEMP 98.2
[2019-10-18 13:23] LABS: CSF, Glucose 43 mg/dl (40-70)
[2019-10-18 13:45] LABS: CSF Source CSF; Clarity Clear (Clear); Tube # 4
[2019-10-18 13:51] LABS: Cell Count Non Hematic 10 %; Eosinophils 1 %; Lymphocytes 86 %; Segmented Neutrophils 3 %
[2019-10-18 13:55] LABS: CSF, Protein 342 mg/dL (15-40)
--- NOTE | 2019-10-18 14:37 | RAD ---
EXAM: XR Lumbar Punct Only W/Fluoro Intrathecal administration of chemotherapy (methotrexate) PROVIDED CLINICAL HISTORY: Metastatic breast cancer including extensive intrathecal metastatic disease and osseous metastatic di sease. COMPARISON: None TECHNIQUE: The procedure including the risks and complications were explained to the patient, and informed conse nt was obtained. Risks and complications of intrathecal administration of chemotherapy was discussed with the patient by Dr. Graham prior to this procedure as well. The patient was placed on e fluoroscopy table in the prone position. An area overlying the L2-3 interspace was marked and then meticulously prepped and draped in usual sterile fashion. The skin and subcutaneous tissues were infiltrated with buffered 1% lidocaine for local anesthesia. A 22-gauge spinal needle was advanced into the central canal. The inner stylette was removed, and the re was a return of clear cerebral spinal fluid. Approximately 5.5 mL of clear cerebral spinal fluid was collected. A mixture of 10 mL of 0.9% normal saline and 0.5 mL of methotrexate (prepared by [email or web address]) was instilled into the thecal sac slowly over a period of approximately 8 minutes. There are stylette was then replaced, and the needle was removed. Hemostasis was achieved with direct pressure. The patient tolerated the procedure well and without immediate complication. The patient was transported to radiology nurses holding area for further monitoring prior to discharge. Fluoroscopy: Time-0.7 minutes Dose 129.3 microGy meter squared IMPRESSION: 1. Technically successful lumbar puncture with collection of clear cerebral spinal fluid. 2. Technically successful intrathecal administration of chemotherapy (methotrexate).
[2019-10-18 17:12] LABS: Tube # 2; Unspun CSF Color COLORLESS (Colorless)
[2019-10-18 17:13] LABS: Color Of CSF Supernatant COLORLESS (Colorless)
== END 2019-10-18 12:50 | disposition home or self-care (01) ==
LOC: RAD 09:52
PROVIDERS: ATTEND Internal Medicine Hematology & Oncology
PROC: 009U3ZZ Drainage of Spinal Canal, Percutaneous Approach (ICD-10-PCS; principal; 2019-10-18)
DX: C79.51 Secondary malignant neoplasm of bone (principal); C50.912 Malignant neoplasm of unspecified site of left female breast; I10 Essential (primary) hypertension; J45.909 Unspecified asthma, uncomplicated; D64.9 Anemia, unspecified; Z79.899 Other long term (current) drug therapy
CPT/HCPCS: 62270; 82945; 84157; 85060; 88112; 89051; J9250

== ENCOUNTER 2019-10-22 12:22 | Day surgery (SDC) | payer OTHER ==
[2019-10-19 15:36] VITALS: BMI 38.5
[2019-10-22] MEDS ORDERED: Methotrexate Sodium/PF 12.5 MG in Sodium Chloride 0.9% 10 ML IT SCH (13:00)
[2019-10-22 13:28] VITALS: BP 129/90; TEMP 97.9
[2019-10-22 15:00] LABS: Tube # 2; Unspun CSF Color COLORLESS (Colorless)
[2019-10-22 15:06] LABS: Color Of CSF Supernatant COLORLESS (Colorless)
[2019-10-22 15:08] LABS: CSF Source CSF; Clarity Clear (Clear); Tube # 4
[2019-10-22 15:18] LABS: CSF, Glucose 46 mg/dl (40-70)
[2019-10-22 15:36] LABS: CSF, Protein 307 mg/dL (15-40)
--- NOTE | 2019-10-23 08:04 | RAD ---
EXAM: XR Lumbar Punct Only W/Fluoro Intrathecal administration of chemotherapy (methotrexate) PROVIDED CLINICAL HISTORY: Metastatic breast cancer including intrathecal metastatic disease and osseous metastatic disease. COMPARISON: None TECHNIQUE: The procedure including the risks and complications were explained to the patient, and informed conse nt was obtained. Patient was placed on the fluoroscopy table in the prone position. An area overlying the L2-3 interspace was marked and then meticulously prepped and draped in usual sterile fa shion. The skin and subcutaneous tissues were infiltrated with buffered 1% lidocaine for local anesthesia. A 22-gauge spinal needle was advanced into the central canal. The inner stylette was removed, and the re was a return of minimal blood-tinged cerebral spinal fluid. Approximately 5 mL of cerebrospinal fluid was collected. The cerebral spinal fluid cleared throughout the collection. A mixture of 10 mL of 0.9% normal saline and 0.5 mL (0.5 mg) of methotrexate, which was prepared by the pharmacy, was instilled into the thecal sac slowly over a period of approximately 7 minutes. The inner stylette was replaced, and the needle was removed. Hemostasis was achieved with direct pressure. The patient tolerated the procedure well and without immediate complication. Patient was transported to radiology nurses holding area for further monitoring prior to discharge. Fluoroscopy: Time-0.4 minutes Dose 60.1 mGy meter squared. IMPRESSION: 1. Technically successful lumbar puncture with collection of 5 mL of cerebrospinal fluid. 2. Technically successful intrathecal administration of chemotherapy (methotrexate).
== END 2019-10-22 15:10 | disposition home or self-care (01) ==
LOC: RAD 12:22
PROVIDERS: ATTEND Internal Medicine Hematology & Oncology
PROC: 009U3ZZ Drainage of Spinal Canal, Percutaneous Approach (ICD-10-PCS; principal; 2019-10-22)
DX: C79.81 Secondary malignant neoplasm of breast (principal); C79.51 Secondary malignant neoplasm of bone; C50.912 Malignant neoplasm of unspecified site of left female breast; I10 Essential (primary) hypertension; J45.909 Unspecified asthma, uncomplicated; F17.220 Nicotine dependence, chewing tobacco, uncomplicated
CPT/HCPCS: 62270; 82945; 84157; 88112; 89051; J9250

== ENCOUNTER 2019-10-25 12:13 | Day surgery (SDC) | payer OTHER ==
[2019-10-24 17:22] VITALS: BMI 38.5
[2019-10-25] MEDS ORDERED: Methotrexate Sodium/PF 12.5 MG in Sodium Chloride 0.9% 10 ML IT SCH (12:30)
[2019-10-25 14:42] VITALS: BP 144/89; TEMP 98.7
--- NOTE | 2019-10-25 16:27 | RAD ---
EXAM: XR Lumbar Punct Only W/Fluoro Intrathecal administration of chemotherapy (methotrexate) PROVIDED CLINICAL HISTORY: Metastatic breast cancer. COMPARISON: None FINDINGS: The procedure including the risks and complications were explained to the patient, and informed conse nt was obtained. Patient was placed on the fluoroscopy table in the prone position. An area overlying the L2-3 interspace was marked and then meticulously prepped and draped in usual sterile fa shion. The skin and subcutaneous tissues were infiltrated with buffered 1% lidocaine for local anesthesia. A 22-gauge spinal needle was advanced into the central canal. The inner stylette was removed, and the re was a return of slightly yellow-tinged clear fluid. Approximately 6.5 mL of slightly yellow clear cerebral spinal fluid was collected. Given the appearance of the cerebral spinal fluid, consult ation was made with Dr. Graham regarding injection of chemotherapy into the thecal sac. Dr. Graham indicated that chemotherapy injection should be performed. A mixture of 10 mL of 0.5% normal saline a nd 0.5 mL of methotrexate was instilled into the thecal sac slowly over a period of approximately 6 minutes. The inner stylette was replaced, and the needle was removed. Hemostasis was achieved with di rect pressure. The patient tolerated the procedure well and without immediate complication. Patient was transported to radiology nurses holding area for further monitoring prior to discharge. Fluoroscopy: Time-0.2 minutes Dose-48.8 mcg meter squared IMPRESSION: 1. Technically successful lumbar puncture as described above. 2. Technically successful intrathecal administration of chemotherapy (methotrexate)..
== END 2019-10-25 14:30 | disposition home or self-care (01) ==
LOC: RAD 12:13
PROVIDERS: ATTEND Internal Medicine Hematology & Oncology
DX: C79.51 Secondary malignant neoplasm of bone (principal); C50.912 Malignant neoplasm of unspecified site of left female breast; I10 Essential (primary) hypertension; J45.909 Unspecified asthma, uncomplicated; F17.220 Nicotine dependence, chewing tobacco, uncomplicated; Z17.1 Estrogen receptor negative status [ER-]; Z79.899 Other long term (current) drug therapy
CPT/HCPCS: 62270; J9250

== ENCOUNTER 2019-10-29 12:19 | Day surgery (SDC) | payer OTHER ==
[2019-10-26 14:32] VITALS: BMI 38.5
[2019-10-29] MEDS ORDERED: Methotrexate Sodium/PF 12.5 MG in Sodium Chloride 0.9% 9.5 ML IT SCH (12:45)
[2019-10-29 13:40] VITALS: BP 111/86; TEMP 97.6
--- NOTE | 2019-10-29 14:57 | RAD ---
Fluoroscopically guided lumbar puncture Intrathecal injection of chemotherapy agent: DATE: 10/29/2019 HISTORY: 49-year-old female with malignant neoplasm of central portion of left female breast with central nerv ous system metastatic involvement. TECHNIQUE: Signed informed consent obtained. Patient placed prone on fluoroscopy table. Skin of lower back prepa red and draped in usual sterile fashion. 25-gauge needle used to apply buffered lidocaine. 22-gauge needle advanced under intermittent fluoroscopy into intrathecal space from right paramedian interlami christine approach at L2-3. Return of clear CSF. However, CSF flow was extremely slow despite repositioning of needle and tilting the patient's body position and tilting the table. Other radiolog ists have encountered the same problem with CSF flow on previous procedures. One mL of CSF was collected and sent to laboratory. Next, a total of 12.5 mg of methotrexate in 10 mL solution was slow ly injected intrathecally over 5 minutes. Needle was removed. Patient tolerated procedure well. No complications. IMPRESSION: 1. Successful intrathecal administration of methotrexate chemotherapy. 2. Extremely slow CSF flow. Only 1 mL obtained and sent to laboratory.
[2019-10-29 16:39] LABS: CSF Source CSF; Clarity Clear (Clear); Tube # 1
[2019-10-29 16:50] LABS: Color Of CSF Supernatant COLORLESS (Colorless); Tube # 1; Unspun CSF Color COLORLESS (Colorless)
[2019-10-29 17:03] LABS: CSF, Glucose 45 mg/dl (40-70); CSF, Protein 178 mg/dL (15-40)
== END 2019-10-29 14:55 | disposition home or self-care (01) ==
LOC: RAD 12:19
PROVIDERS: ATTEND Internal Medicine Hematology & Oncology
PROC: 00JU3ZZ Inspection of Spinal Canal, Percutaneous Approach (ICD-10-PCS; principal; 2019-10-29)
DX: C79.51 Secondary malignant neoplasm of bone (principal); C50.112 Malignant neoplasm of central portion of left female breast; I10 Essential (primary) hypertension; J45.909 Unspecified asthma, uncomplicated; D64.9 Anemia, unspecified; Z79.899 Other long term (current) drug therapy
CPT/HCPCS: 62270; 82945; 84157; 88112; 89051; J9250

== ENCOUNTER 2019-11-01 12:12 | Day surgery (SDC) | payer OTHER ==
[2019-10-31 08:00] VITALS: BMI 38.5
[2019-11-01] MEDS ORDERED: Methotrexate Sodium/PF 12.5 MG in Sodium Chloride 0.9% 10 ML IT SCH (13:00)
[2019-11-01 13:32] VITALS: BP 88/65; TEMP 98.1
--- NOTE | 2019-11-01 14:36 | RAD ---
Fluoroscopic guided lumbar puncture Fluoroscopic guided intrathecal chemotherapy injection HISTORY: Breast cancer with metastases. Fluoroscopy time 0.4 minutes. FINDINGS: After explaining the procedure and answering all questions, the lower back was prepped and draped in usual sterile fashion. Sterile technique, buffered local anesthesia, fluoroscopic guidance, and a left posterolateral L2-3 approach were used to carefully advance the tip of a 20-gaug e spinal needle into the thecal sac.. A total of 7 cc clear CSF was obtained and submitted to laboratory for evaluation as ordered by Dr. Kyra patel. Over a 5 minute period, a total volume of 10 cc liquid containing methotrexate as ordered by Dr. Tayler prater were carefully instilled into the thecal sac under fluoroscopic control. Needle was removed. Patient tolerated the procedure well and was dismissed in good condition. IMPRESSION: Technically successful fluoroscopic guided lumbar puncture and methotrexate intrathecal i njection.
[2019-11-01 14:38] LABS: Color Of CSF Supernatant COLORLESS (Colorless); Tube # 2; Unspun CSF Color COLORLESS (Colorless)
[2019-11-01 14:51] LABS: CSF, Glucose 53 mg/dl (40-70); CSF, Protein 106 mg/dL (15-40)
[2019-11-01 15:02] LABS: CSF Source CSF; Clarity Clear (Clear); Tube # 4
[2019-11-01 15:13] LABS: Cell Count Non Hematic 13 %; Eosinophils 2 %; Lymphocytes 60 %; Segmented Neutrophils 25 %
== END 2019-11-01 14:20 | disposition home or self-care (01) ==
LOC: RAD 12:12
PROVIDERS: ATTEND Internal Medicine Hematology & Oncology
PROC: 009U3ZX Drainage of Spinal Canal, Percutaneous Approach, Diagnostic (ICD-10-PCS; principal; 2019-11-01)
DX: C50.112 Malignant neoplasm of central portion of left female breast (principal); C79.51 Secondary malignant neoplasm of bone; I10 Essential (primary) hypertension; J45.909 Unspecified asthma, uncomplicated; F17.220 Nicotine dependence, chewing tobacco, uncomplicated; Z17.1 Estrogen receptor negative status [ER-]; Z79.899 Other long term (current) drug therapy
CPT/HCPCS: 62270; 82945; 84157; 85060; 88112; 89051; J9250

== ENCOUNTER 2019-11-05 12:14 | Day surgery (SDC) | payer OTHER ==
[2019-11-02 16:23] VITALS: BMI 38.5
[2019-11-05] MEDS ORDERED: Methotrexate Sodium/PF 12.5 MG in Sodium Chloride 0.9% 10 ML IV SCH (13:15)
--- NOTE | 2019-11-05 15:03 | RAD ---
Exam: Fluoroscopically guided lumbar puncture. Fluoroscopic guided intrathecal chemotherapy injection HISTORY: Metastatic breast cancer Exposure: 73.3 mcGy/m2; 0.4 minute fluoroscopy time FINDINGS: Successful lumbar puncture. Total of 2 cc of clear CSF was collected. 10.5 mL of methotrexa te was administered over 5 minutes. Patient tolerated the procedure well. No immediate or postprocedure complications TECHNIQUE: Consent obtained performing lumbar puncture for CSF acquisition as well as intrathecal car motherapy injection Patient's back was evaluated. The L2-L3 level was deemed appropriate. Skin was prepped and draped in a sterile fashion. 1% lidocaine, buffered with sodium bicarbonate was used for local anesthesia. Under fluoroscopic guidance, 22-gauge spinal needle was advanced into the CSF space. There is prompt flow of clear CSF to the hub of the needle. Total of 2 cc of clear CSF was acquired. The chemotherapy agent was administered over a 5 minute period. Patient tolerated the procedure well. No immediate or postprocedure complications IMPRESSION: Successful lumbar puncture.
[2019-11-05 15:23] LABS: Color Of CSF Supernatant COLORLESS (Colorless); Tube # 1; Unspun CSF Color COLORLESS (Colorless)
[2019-11-05 15:28] LABS: CSF Source CSF; Clarity Clear (Clear); Tube # 2
[2019-11-05 15:29] LABS: CSF, Glucose 64 mg/dl (40-70); CSF, Protein 45 mg/dL (15-40)
== END 2019-11-05 14:30 | disposition home or self-care (01) ==
LOC: RAD 12:14
PROVIDERS: ATTEND Internal Medicine Hematology & Oncology
PROC: 00JU3ZZ Inspection of Spinal Canal, Percutaneous Approach (ICD-10-PCS; principal; 2019-11-05)
DX: C79.51 Secondary malignant neoplasm of bone (principal); C50.912 Malignant neoplasm of unspecified site of left female breast; I10 Essential (primary) hypertension; F17.220 Nicotine dependence, chewing tobacco, uncomplicated; D64.9 Anemia, unspecified; Z79.899 Other long term (current) drug therapy
CPT/HCPCS: 62270; 82945; 84157; 88112; 89051; J9250

== ENCOUNTER 2019-11-07 20:41 | Emergency (ER) | payer OTHER ==
[~2019-11-07 20:41] MED LIST changes: +EPINEPHrine 1 MG/10 ML Abboject SYRINGE ONE; -Methotrexate Sodium/PF 12.5 MG in Sodium Chloride 0.9% 10 ML IT SCH; +Sodium Bicarb 50 MEQ/50 ML Abboject 8.4% SYRINGE ONE
--- NOTE | 2019-11-07 22:24 | RAD ---
Chest AP view INDICATION: Chest pain COMPARISON: November 30, 2018 FINDINGS: Lungs:The lungs are clear Cardiac silhouette:The cardiomediastinal silhouette appears within normal limits. Pulmonary vasculature:Normal Pleural spaces:No pleural effusion or pneumothorax is demonstrated. Upper abdomen:No abnormality seen. Osseous structures: No acute osseous abnormality. Additional findings:Stable right chest wall port. IMPRESSION: No acute cardiopulmonary abnormality.
[2019-11-07 22:42] LABS: ALT (SGPT) 229 U/L (8-55); AST (SGOT) 479 U/L (5-34); Albumin 3.2 g/dL (3.5-5.0); Alkaline Phosphatase 249 U/L (40-110); Anion Gap 24 mmol/L (10-20); BUN (Urea Nitrogen) 39 mg/dL (7.0-18.7); Bilirubin, Total 3.2 mg/dL (0.2-1.2); CK (CPK) 293 U/L (29-168); Calc. Creatinine Clearance 0 mL/min (70-130); Calcium 7.7 mg/dL (7.8-10.44); Carbon Dioxide 15 mmol/L (22-29); Chloride 94 mmol/L (98-107); Estimated GFR-MDRD 41; Globulin 2.1 g/dL (2.4-3.5); Glucose 171 mg/dL (70-105); Magnesium 2.1 mg/dL (1.6-2.6); Potassium 4.6 mmol/L (3.5-5.1); Protein, Total 5.3 g/dL (6.0-8.3); Sodium 128 mmol/L (136-145)
[2019-11-07 23:05] LABS: CKMB 2.5 ng/mL (0-6.6)
[2019-11-07 23:10] LABS: Mean Corpuscular Volume 92.2 fL (78.0-98.0)
[2019-11-07 23:29] LABS: Band 11 % (5-11); Hemoglobin 11.2 g/dL (12.0-16.0); Lymphocytes 6 % (21-51); MDiff Complete? YES; Mean Corpuscular HGB CONC 32.7 g/dL (32.0-36.0); Mean Corpuscular Hemoglobin 30.2 pg (27.0-31.0); Mean Platelet Volume 14.1 fL (7.4-10.4); Monocytes 1 % (0-10); Neutrophil 82 % (42-75); Nucleated RBC 1 % (0); Platelet Count 33 thou/uL (130-400); Platelet Morphology Comment Appears Decreased; RBC Distribution Width 21.2 % (11.5-14.5); White Blood Cell (WBC) Count 5.6 thou/uL (4.8-10.8)
[2019-11-07] MEDS ORDERED: Succinylcholine Chloride 20 MG/ML 10 ml SYRINGE FS ONE (23:33)
== END 2019-11-08 00:06 | disposition expired ==
LOC: ERS 20:41
DX: I46.9 Cardiac arrest, cause unspecified (principal); R53.1 Weakness; I10 Essential (primary) hypertension; D64.9 Anemia, unspecified; Z87.891 Personal history of nicotine dependence; Z79.899 Other long term (current) drug therapy
CPT/HCPCS: 31500; 36415; 36416; 71045; 80053; 82550; 82553; 83735; 83880; 84484; 85025; 87804; 92950; 93005; 96361; 96374; 96375; 96376; J0171